=== PATIENT | female | born 1975 | race Two or more races ===

== ENCOUNTER 2017-09-03 17:53 | Emergency (ER) | payer OTHER ==
[~2017-09-03 17:53] MED LIST: ASPI-807 PO; ONDA4TAB11 PO; PREN1TAB59 PO
[2017-09-03] MEDS ORDERED: ALPRAZOLAM 0.5 MG TABLET ONE (18:18)
[2017-09-03] MEDS ORDERED: ALPRAZOLAM 0.5 MG TABLET PO ONE (18:30)
== END 2017-09-03 20:48 | disposition home or self-care (01) ==
DX: F41.9 Anxiety disorder, unspecified (principal); F43.9 Reaction to severe stress, unspecified; F10.10 Alcohol abuse, uncomplicated; Z79.82 Long term (current) use of aspirin; Z88.0 Allergy status to penicillin; Z60.2 Problems related to living alone

== ENCOUNTER 2017-10-25 21:04 | Emergency (ER) | payer OTHER ==
[~2017-10-25] VITALS: Ht 170.2 cm; Wt 70.8 kg
--- NOTE | 2017-10-25 21:16 | NUR ---
PT AMBULATORY TO ER BED 11. BIB FAMILY C/O INTERMITTENT CP X 3 WEEKS. DENIES SOB. 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 VSS/RESP EVEN UNLABORED/NAD NOTED/SKIN WARM AND DRY/DENIES N-V-D/AFEBRILE/AOX4. AWAITING MD HURLEY.
--- NOTE | 2017-10-25 21:24 | NUR ---
EMT AT BEDSIDE FOR EKG.
--- NOTE | 2017-10-25 21:26 | NUR ---
XRAY AT BEDSIDE FOR CXR.
--- NOTE | 2017-10-25 21:40 | NUR ---
18G IV TO R AC X 1 ATTEMPT USING ASEPTIC TECH, BLOOD HANDED OVER TO THE LAB AT THE BEDSIDE. IV FLUSHES EASILY WITH NS, NO S/S INFILTRATION NOTED AT THIS TIME.
[2017-10-25 21:41] LABS: BASOPHILS % (AUTO) 0.4 % (0.0-2.0); EOSINOPHILS % (AUTO) 1.8 % (0.0-6.0); HEMATOCRIT 37 % (33-45); HEMOGLOBIN 12.7 g/dL (11.5-14.8); LYMPHOCYTES # (AUTO) 2.5 /CMM (0.8-4.8); LYMPHOCYTES % (AUTO) 33.4 % (20.0-44.0); MEAN CORPUSCULAR HEMOGLOBIN 29 PG (26.0-33.0); MEAN CORPUSCULAR HGB CONC 35 g/dl (31.0-36.0); MEAN CORPUSCULAR VOLUME 83 fL (82-100); MONOCYTES # (AUTO) 0.5 /CMM (0.1-1.30); MONOCYTES % (AUTO) 6.2 % (2.0-12.0); NEUTROPHILS # (AUTO) 4.3 /CMM (1.8-8.9); NEUTROPHILS % (AUTO) 58.2 % (43.0-81.0); PLATELET COUNT (AUTO) 234 /CMM (150-450); RDW COEFFICIENT OF VARIATION 12.9 (11.5-15.0); WHITE BLOOD COUNT (AUTO) 7.4 K/uL (4.3-11.0)
[2017-10-25 21:51] LABS: CALCIUM, SERUM 8.7 mg/dL (8.5-10.1); CARBON DIOXIDE 28 mmol/L (21-32); CHLORIDE 105 mmol/L (98-107); CREATININE 0.9 mg/dL (0.6-1.3); GLUCOSE 114 mg/dL (74-106); POTASSIUM 3.5 mmol/L (3.5-5.1); SODIUM SERUM 140 mmol/L (136-145); UREA NITROGEN, BLOOD 12 mg/dL (7-18)
[2017-10-25 21:57] LABS: TROPONIN I < 0.017 ng/mL (0.00-0.056)
[2017-10-25 21:58] LABS: ALANINE AMINOTRANSFERASE 23 U/L (12-78); ALBUMIN 3.6 g/dL (3.4-5.0); ALKALINE PHOSPHATASE 67 U/L (46-116); ASPARTATE AMINOTRANSFERASE 15 U/L (15-37); BILIRUBIN,DIRECT 0.1 mg/dL (0.0-0.2); BILIRUBIN,TOTAL 0.2 mg/dL (0.2-1.0)
[2017-10-25 22:02] LABS: INR 0.89 (0.85-1.15)
[2017-10-25] MEDS ORDERED: IBUPROFEN 600 MG TABLET PO ONE ×2 (22:27→22:30)
[2017-10-25] MEDS ORDERED: ACETAMINOPHEN ES 500 MG TABLET ONE (22:27)
[2017-10-25] MEDS ORDERED: ACETAMINOPHEN ES 500 MG TABLET PO ONE (22:30)
--- NOTE | 2017-10-25 22:51 | NUR ---
IV removed. Catheter intact and site benign. Pressure and 4x4 applied to site. No bleeding noted. Patient discharged to home in stable condition. Written and verbal after care instructions given. Patient verbalizes understanding of instruction. Patient ambulatory with a steady gait.
[2017-10-25 22:52] VITALS: BP 127/73
== END 2017-10-25 22:52 | disposition home or self-care (01) ==
LOC: ER 21:08
DX: R07.89 Other chest pain (principal); F10.10 Alcohol abuse, uncomplicated; Y90.9 Presence of alcohol in blood, level not specified; Z60.2 Problems related to living alone; Z88.0 Allergy status to penicillin; Z79.82 Long term (current) use of aspirin
CPT/HCPCS: 36415; 71045; 80048; 80076; 84484; 85025; 85730; 93005; 99285; A4606; Z7610